=== PATIENT | female | born 1950 | race Caucasian/White ===

== ENCOUNTER 2018-08-13 13:33 | Inpatient (IN) | payer MEDICARE, OTHER ==
[~2018-08-13] VITALS: Ht 157.5 cm; Wt 49.9 kg
--- NOTE | 2018-08-13 13:36 | NUR ---
BIBRA FROM [facility] FOR GRADUAL ONSET CHEST PAIN, COUGH AND CONGESTION, NAD, VSS.
[2018-08-13] MEDS ORDERED: ACETAMINOPHEN ES 500 MG TABLET ONE (13:46)
[2018-08-13 13:55] LABS: BASOPHILS % (AUTO) 0.5 % (0.0-2.0); EOSINOPHILS % (AUTO) 0.1 % (0.0-6.0); HEMATOCRIT 29 % (33-45); HEMOGLOBIN 9.8 g/dL (11.5-14.8); LYMPHOCYTES # (AUTO) 0.8 /CMM (0.8-4.8); MEAN CORPUSCULAR HGB CONC 34 g/dl (31.0-36.0); MEAN CORPUSCULAR VOLUME 88 fL (82-100); MONOCYTES # (AUTO) 0.3 /CMM (0.1-1.30); MONOCYTES % (AUTO) 6.1 % (2.0-12.0); NEUTROPHILS # (AUTO) 4.4 /CMM (1.8-8.9); NEUTROPHILS % (AUTO) 78.3 % (43.0-81.0); PLATELET COUNT (AUTO) 237 /CMM (150-450); RED BLOOD CELL COUNT(AUTO) 3.29 MIL/uL (4.0-5.2); WHITE BLOOD COUNT (AUTO) 5.6 K/uL (4.3-11.0)
[2018-08-13] MEDS ORDERED: IV NS 0.9% 500 ML BAG IV ONE (14:00)
[2018-08-13] MEDS ORDERED: ACETAMINOPHEN 650 MG/SUPP.RECT RC ONE ×2 (14:00→14:08)
[2018-08-13] MEDS ORDERED: ACETAMINOPHEN ES 500 MG TABLET PO ONE (14:00)
[2018-08-13 14:02] LABS: CALCIUM, SERUM 8.6 mg/dL (8.5-10.1); CARBON DIOXIDE 26 mmol/L (21-32); CHLORIDE 99 mmol/L (98-107); GLUCOSE 122 mg/dL (74-106); POTASSIUM 3.7 mmol/L (3.5-5.1); SODIUM SERUM 133 mmol/L (136-145); UREA NITROGEN, BLOOD 22 mg/dL (7-18)
[2018-08-13 14:08] LABS: ALANINE AMINOTRANSFERASE 20 U/L (12-78); ALBUMIN 2.8 g/dL (3.4-5.0); ALKALINE PHOSPHATASE 92 U/L (46-116); ASPARTATE AMINOTRANSFERASE 16 U/L (15-37); BILIRUBIN,DIRECT 0.1 mg/dL (0.0-0.2); BILIRUBIN,TOTAL 0.2 mg/dL (0.2-1.0); TOTAL PROTEIN, SERUM 7.7 g/dL (6.4-8.2)
--- NOTE | 2018-08-13 14:15 | NUR ---
PATIENT REFUSED TYLENOL PO, REQUESTED FOR TYLENOL SUPP. MADE AWARE. WASTED ONE TAB OF TYLENOL 500MG BECAUSE ITS OPEN. RETURNED THE OTHER 500MG.
[2018-08-13] MEDS ORDERED: IV NS 0.9% 250 ML IV ONE (14:22)
[2018-08-13] MEDS ORDERED: IOHEXOL-300 100 ML VIAL IV ONE (14:22)
[2018-08-13] MEDS ORDERED: CT SWABBABLE VALVE TRANS SET 1 EA INFUS.SET MC ONE (14:22)
[2018-08-13] MEDS ORDERED: PIPERACILLIN /TAZOBACTAM 3.375 G in IV D5W 50 ML IV ONE (15:00)
--- NOTE | 2018-08-13 15:20 | NUR ---
PER DR. HOFFMAN, HE ORDERED 1.9ML OF IVF OF NS BUT PER MD, SUBTRACT THE 500ML OF NS THAT WAS ALREADY ADMINISTERED.
[2018-08-13 15:25] LABS: APPEARANCE,URINE Clear (CLEAR); BILIRUBIN,URINE Negative (NEGATIVE); BLOOD, URINE Negative Ery/uL (NEGATIVE); COLOR,URINE Yellow (YELLOW); KETONES,URINE Negative (NEGATIVE); LEUKOCYTE ESTERASE ,URINE Negative (NEGATIVE); NITRITE, URINE Negative (NEGATIVE); PH,URINE 7.5 (5.0-8.0); PROTEIN,URINE Negative (NEGATIVE); UGLUCOSE Negative (NEGATIVE); UROBILINOGEN,URINE 0.2 EU/dL (0.2)
[2018-08-13] MEDS ORDERED: IV NS 0.9% 1,000 ML BAG IV ONE (15:30)
[2018-08-13] MEDS ORDERED: VANCOMYCIN 1 GM in IV D5W 250 ML IV ONE (15:30)
--- NOTE | 2018-08-13 15:35 | NUR ---
CALLED NURSING SUP REQUESTED MEDSURG BED FOR THIS PATIENT
--- NOTE | 2018-08-13 15:43 | NUR ---
ADMIT TO ROOM 324-1 MEDSURG DX ABDOMINAL PAIN, R/O APPENDICITIS ACCEPTING TERI PHILIP NP
[2018-08-13] MEDS ORDERED: IV D5/0.45 NACL 1,000 ML IV PRN (16:03)
[2018-08-13] MEDS ORDERED: MAG HYDROX/AL HYDROX/SIMETH 30 ML UDC PO PRN (16:30)
[2018-08-13] MEDS ORDERED: Z GUARD REMEDY 2 OZ OINT TP PRN (16:30)
[2018-08-13] MEDS ORDERED: ZOLPIDEM TARTRATE 5 MG TABLET PO PRN (16:30)
[2018-08-13] MEDS ORDERED: ACETAMINOPHEN 650 MG/SUPP.RECT RC PRN (16:30)
[2018-08-13] MEDS ORDERED: ACETAMINOPHEN 325 MG TABLET PO PRN (16:30)
[2018-08-13] MEDS ORDERED: FEE PK DOSING 1 MIN EA MC ONE (16:42)
--- NOTE | 2018-08-13 16:52 | NUR ---
REPORT GIVEN TO WILLIE ARMENDARIZ. PATIENT ASLEEP AT THIS TIME.
[2018-08-13] MEDS ORDERED: ONDA4TAB5 PO (17:05)
[2018-08-13] MEDS ORDERED: CLID1CAP PO (17:05)
[2018-08-13] MEDS ORDERED: AMIN30LI27 PO (17:05)
[2018-08-13] MEDS ORDERED: HYDR-4354 PO (17:05)
[2018-08-13] MEDS ORDERED: ASCO-340 PO (17:05)
[2018-08-13] MEDS ORDERED: ACET325T53 PO (17:05)
[2018-08-13] MEDS ORDERED: MAGN400O6 PO (17:05)
[2018-08-13] MEDS ORDERED: ALPR1TAB2 PO (17:05)
[2018-08-13] MEDS ORDERED: NA P133E RC (17:05)
[2018-08-13] MEDS ORDERED: LIDO30AD10 TP (17:05)
[2018-08-13] MEDS ORDERED: GABA250S PO (17:05)
[2018-08-13] MEDS ORDERED: DOCU-141 PO (17:05)
[2018-08-13] MEDS ORDERED: ERGO500040 PO (17:05)
[2018-08-13] MEDS ORDERED: ACET-73 PO ×2 (17:05)
[2018-08-13] MEDS ORDERED: BLOO-668 IN (17:05)
[2018-08-13] MEDS ORDERED: TRAZ-182 PO (17:05)
[2018-08-13] MEDS ORDERED: BISA10SU61 RC (17:05)
[2018-08-13] MEDS ORDERED: FERR325T23 PO (17:05)
--- NOTE | 2018-08-13 17:15 | NUR ---
RECEIVED REPORT FROM CANDACE, PATIENT BEING ADMITTED TO [facility]. WILL ACCEPT PATIENT AND CARRY OUT ADMISSION ORDERS.
--- NOTE | 2018-08-13 17:30 | NUR ---
PATIENT TRANSFERRED TO ROOM 324, VIA GURNEY. IN STABLE CONDITION.
[2018-08-13] MEDS ORDERED: BISACODYL SUPP (10 MG) 10 MG/SUPP.RECT SUPP.RECT RC PRN (18:00)
[2018-08-13] MEDS: ONDANSETRON HCL/PF 4 MG/2 ML VIAL IVP PRN (18:08)
[2018-08-13] MEDS: HYDROCODONE/APAP 5/325MG 1 EACH TABLET PO PRN (18:08)
[2018-08-13] MEDS ORDERED: FEE TPN 1 MIN EA MC ONE (18:12)
[2018-08-13 18:26] LABS: MAGNESIUM 1.7 mg/dL (1.8-2.4); PHOSPHORUS 2.4 mg/dL (2.5-4.9)
[2018-08-13] MEDS ORDERED: DEXTROSE 50%-WATER 50 ML DISP.SYRIN IV PRN (18:30)
[2018-08-13] MEDS ORDERED: IV NS 0.9% 1,000 ML IV PRN (18:30)
[2018-08-13] MEDS ORDERED: INSULIN REGULAR, HUMAN 100 UNIT/ML 3 ML VIAL SQ PRN (18:30)
[2018-08-13] MEDS ORDERED: TPN/PPN PER PHARMACY XX PRN (18:30)
--- NOTE | 2018-08-13 18:30 | NUR ---
MS RN NOTE RECEIVED PATIENT VIA MibioRNEY IN STABLE CONDITION, ALERT ORIENTED X4. ON ROOM AIR, TOLERATING WELL. RESPIRATIONS EVEN AND UNLABORED. REPORTS PAIN IN RIGHT LOWER ABDOMEN 01/28. ADMITTING DR NOTIFIED. AWAITING ORDERS. PATIENT IS STABLE, FEBRILE 101.0 BODY TEMPERATURE. MD AWARE, NO NEW ORDERS AT THIS TIME. PATIENT REPORTEDLY RECEIVED TYLENOL IN THE ER. WILL CONTINUE TO MONITOR. SKIN ASSESSMENT PERFORMED, SKIN IS INTACT. PATIENT MADE COMFORTABLE IN BED. SAFETY MEASURES APPLIED. BED IN LOW LOCKED POSITION, SIDE RAILS UP X2, CALL LIGHT WITHIN EASY REACH. WILL CONTINUE TO MONITOR AND ENDORSE TO NIGHT RN FOR ANAHI AND ADMISSION. Addendum: 08/13/18 at 2044 by WILLIE BAIG RN LEFT UPPER ARM PICC LINE IN PLACE, PATENT AND INTACT.
--- NOTE | 2018-08-13 18:35 | NUR ---
PATIENT COMPLAINING OF PAIN IN RIGHT LOWER ABDOMEN. NORCO-5/325MG PRN ADMINISTERED WITH SMALL SIP OF WATER. ZOFRAN ADMINISTERED IV PATIENT WAS COMPLAINING OF NAUSEA. PATIENT TOLERATED WELL. VITAL SIGNS STABLE BP: 120/62 HR: 95, RESP 18. WILL CONTINUE TO MONITOR.
--- NOTE | 2018-08-13 19:00 | NUR ---
MS RN CLOSING NOTE PATIENT IN BED. ALERT ORIENTED X4. ON ROOM AIR, TOLERATING WELL. IN NO APPARENT DISTRESS OR DISCOMFORT AT THIS TIME. RESPIRATIONS EVEN AND UNLABORED. REPORTS PAIN HAS IMPROVED WITH THE PAIN MEDICATION. BODY TEM RECHECKED PRIOR TO ENDORSEMENT, 100.5. HOSPITALIST AWARE. ABLE TO COMMUNICATE NEEDS. LEFT UPPER ARM PICC LINE. PATENT AND INTACT. PATIENT MADE COMFORTABLE IN BED. SAFETY MEASURES IN PLACE, BED IN LOW LOCKED POSITION, SIDE RAILS UP X2, CALL LIGHT WITHIN EASY REACH. WILL ENDORSE TO PM NURSE FOR ADMISSION AND CONTINUITY OF CARE.
--- NOTE | 2018-08-13 19:30 | NUR ---
TELE/RN NOTES RECEIVED PT. LYING IN BED. PT. IS AWAKE, ALERT AND ORIENTED X4. BREATHING EVEN AND UNLABORED ON ROOM AIR. NO SOB, RESPIRATORY DISTRESS OR COMPLAINTS OF PAIN NOTED AT THIS TIME. NO N/V NOTED AT THIS TIME. PT. WITH EXTERNAL WELL DRILLER PRESENT AND INTACT. CURRENT RHYTHM = SINUS RHYTHM HR 93. PT. WITH LEFT UPPER ARM PICC PRESENT, PATENT AND INTACT. PT. REMAINS NPO AT THIS TIME. PER DAYSHIFT NURSE PT. HAD TEMPERATURE OF 103F IN ER AND PT. TEMPERATURE IS DOWN TRENDING. PER DAYSHIFT NURSE AWARE. BED LOCKED AND IN LOWEST POSITION, SIDE RAILS UP X2, CALL LIGHT WITHIN REACH, WILL CONTINUE TO MONITOR.
[2018-08-13 20:00] VITALS: BP 112/58
[2018-08-13] MEDS ORDERED: TPN BAG # 1 IV PRN ×8 (20:00)
--- NOTE | 2018-08-13 21:15 | NUR ---
MS/RN NOTES CALLED PHARMACY TO CLARIFY PT. HAS SCHEDULED IV ANTIBIOTICS ZOSYN AND VANCOMYCIN, IS IT COMPATIBLE TO ADMINISTER THESE ANTIBIOTICS WHILE PT. IS RECEIVING TPN. PER PHARMACIST RUBENS PT. HAS DOUBLE LUMEN PICC LINE, OK TO ADMINISTER ANTIBIOTICS AND TPN IF RUNNING THROUGH DIFFERENT LINES. WILL ADMINISTER TO PT. MEDICATION ORDERED. WILL CONTINUE TO MONITOR.
[2018-08-13] MEDS: PIPERACILLIN /TAZOBACTAM 3.375 G in IV D5W 50 ML IV SCH (21:29)
[2018-08-13] MEDS: TRAZODONE 50 MG TABLET PO SCH (22:00)
[2018-08-13] MEDS: ALPRAZOLAM 1 MG TABLET PO SCH (22:00)
[2018-08-13] MEDS: DOCUSATE SODIUM 100 MG CAPSULE PO SCH (22:00)
[2018-08-13] MEDS ORDERED: GABAPENTIN 50 MG PO SCH (22:00)
--- NOTE | 2018-08-13 23:02 | NUR ---
MS/RN NOTES NOTIFIED EPIC SPEECH CORRECTION CONSULTANT ASIA PARK PT. IS REQUESTING HER XANAX AND NORCO PAIN MEDICATION AND IS ADAMANT ABOUT TAKING THEM ROBBIN, PT. IS CURRENTLY NPO. CLARIFIED PT. NPO STATUS. PER ASIA PARK PT. NEEDS TO REMAIN NPO AT THIS TIME. NO MEDICATIONS TO BE GIVEN PO. PER ASIA PARK NEW ORDER: ATIVAN 1MG IVP EVERY 6 HOURS PRN ANXIETY. WILL CARRY OUT ORDER. WILL CONTINUE TO MONITOR.
[2018-08-14] MEDS: BLOOD SUGAR DIAGNOSTIC 1 EACH STRIP IN SCH ×4 (00:22→18:00)
[2018-08-14] MEDS: ONDANSETRON HCL/PF 4 MG/2 ML VIAL IVP PRN ×3 (00:31→14:12)
[2018-08-14] MEDS: HYDROMORPHONE INJ 2 MG/ML DISP.SYRIN IV PRN ×4 (00:31→20:26)
[2018-08-14] MEDS: LORAZEPAM INJ 2 MG/ML VIAL IV PRN ×2 (01:35→08:15)
[2018-08-14] MEDS: PIPERACILLIN /TAZOBACTAM 3.375 G in IV D5W 50 ML IV SCH ×4 (03:33→21:46)
[2018-08-14] MEDS: VANCOMYCIN 0.75 GM in IV D5W 250 ML IV SCH ×2 (04:15→16:38)
--- NOTE | 2018-08-14 05:21 | NUR ---
MS/RN NOTES NOTIFIED EPIC PRINCIPAL PRODUCT MANAGER ASIA PARK PT. PRELIMINARY BLOOD CULTURES RESULTED WITH GRAM POSITIVE COCCI, PT. IS CURRENTLY RECEIVING ZOSYN AND VANCOMYCIN ANTIBIOTICS. PER ASIA PARK OK NO NEW ORDERS. WILL CONTINUE TO MONITOR.
--- NOTE | 2018-08-14 06:09 | NUR ---
TELE/RN NOTES PT. IS LYING IN BED RESTING. BREATHING EVEN AND UNLABORED ON ROOM AIR. NO SOB, RESPIRATORY DISTRESS OR COMPLAINTS OF PAIN NOTED AT THIS TIME. NO N/V NOTED AT THIS TIME. PT. WITH LEFT UPPER ARM PICC PRESENT, PATENT AND INTACT ADMINISTERING TO PT. TPN BAG #1 @ 50ML/HR. PT. REMAINS NPO AT THIS TIME. PT. CONTINUES TO REFUSE FULL BODY CHECK AND PICTURES. ALL PT. NEEDS MET. BED LOCKED AND IN LOWEST POSITION, SIDE RAILS UP X2, CALL LIGHT WITHIN REACH, WILL ENDORSE TO DAYSRIFT NURSE FOR CONTINUITY OF CARE.
[2018-08-14 07:00] VITALS: BP 120/66
[2018-08-14 07:29] LABS: BASOPHILS % (AUTO) 0.1 % (0.0-2.0); HEMATOCRIT 25 % (33-45); HEMOGLOBIN 8.1 g/dL (11.5-14.8); LYMPHOCYTES # (AUTO) 0.7 /CMM (0.8-4.8); LYMPHOCYTES % (AUTO) 14.3 % (20.0-44.0); MEAN CORPUSCULAR HGB CONC 33 g/dl (31.0-36.0); MEAN CORPUSCULAR VOLUME 89 fL (82-100); MONOCYTES # (AUTO) 0.3 /CMM (0.1-1.30); MONOCYTES % (AUTO) 7.1 % (2.0-12.0); NEUTROPHILS # (AUTO) 3.7 /CMM (1.8-8.9); NEUTROPHILS % (AUTO) 78.5 % (43.0-81.0); PLATELET COUNT (AUTO) 200 /CMM (150-450); RED BLOOD CELL COUNT(AUTO) 2.77 MIL/uL (4.0-5.2); WHITE BLOOD COUNT (AUTO) 4.7 K/uL (4.3-11.0)
--- NOTE | 2018-08-14 07:30 | NUR ---
MS RN OPENING NOTES RECEIVED PATIENT IN STABLE CONDITION. IN NO APPARENT DISTRESS. BEDSIDE RAILS ARE UPX2. BED IS LOCKED AND LOWERED. CALL LIGHT IS WITHIN REACH. IV LINE IS INTACT AND PATENT. WILL CONTINUE TO MONITOR PATIENT.
[2018-08-14] MEDS: PANTOPRAZOLE 40 MG VIAL IV SCH (08:11)
[2018-08-14] MEDS: FERROUS SULFATE (325 MG) 325 MG/TAB TABLET PO SCH (08:13)
[2018-08-14] MEDS: CLIDINIUM BR/CHLORDIAZEPOXIDE 1 CAP PO SCH ×2 (08:13→16:37)
[2018-08-14] MEDS: ASCORBIC ACID 500 MG TABLET PO SCH (08:13)
[2018-08-14] MEDS: LIDOCAINE 5% (PATCH) 1 EA PATCH TP SCH (08:38)
[2018-08-14] MEDS ORDERED: Medication Not On Formulary EA (Amino Acids/Protein Hydrolys (Pro-Stat Sugar Free Liquid PO SCH (09:00)
[2018-08-14 09:11] LABS: ALBUMIN 2.3 g/dL (3.4-5.0); BILIRUBIN,TOTAL 0.3 mg/dL (0.2-1.0); CALCIUM, SERUM 8.1 mg/dL (8.5-10.1); MAGNESIUM 1.5 mg/dL (1.8-2.4); PHOSPHORUS 3.4 mg/dL (2.5-4.9); TOTAL PROTEIN, SERUM 6.6 g/dL (6.4-8.2)
[2018-08-14 16:00] VITALS: BP 129/68
[2018-08-14] MEDS ORDERED: TPN BAG#2 IV PRN ×8 (17:00)
--- NOTE | 2018-08-14 18:39 | NUR ---
MS RN CLOSING NOTES PATIENT IS IN STABLE CONDITION. IN NO APPARENT DISTRESS. BEDSIDE RAILS ARE UPX2. BED IS LOCKED AND LOWERED. CALL LIGHT IS WITHIN REACH. IV LINE IS INTACT AND PATENT. ALL NEEDS WERE MET. WILL ENDORSE CARE TO IMPREGNATING TANK OPERATOR NURSE FOR ANAHI.
--- NOTE | 2018-08-14 19:10 | NUR ---
MS/RN NOTES RECEIVED PT. LYING IN BED. PT. IS AWAKE, ALERT AND ORIENTED X4. BREATHING EVEN AND UNLABORED ON ROOM AIR. NO SOB, RESPIRATORY DISTRESS OR COMPLAINTS OF PAIN NOTED AT THIS TIME. NO N/V NOTED AT THIS TIME. PT. WITH LEFT UPPER ARM PICC PRESENT, PATENT AND INTACT ADMINISTERING TO PT. TPN BAG #1 AT 50ML/HR. PT. REMAINS NPO AT THIS TIME. PER DAYSHIFT NURSE AWAITING ARRIVAL OF PICC LINE NURSE TO INSERT NEW PICC SO THAT OLD PICC CAN BE REMOVED AND TIP SENT FOR CULTURE. BED LOCKED AND IN LOWEST POSITION, SIDE RAILS UP X2, CALL LIGHT WITHIN REACH, WILL CONTINUE TO MONITOR.
[2018-08-14 20:00] VITALS: BP 140/74
[2018-08-14] MEDS: GABAPENTIN 100 MG CAPSULE PO SCH (22:00)
[2018-08-14] MEDS: TRAZODONE 50 MG TABLET PO SCH (22:00)
[2018-08-14] MEDS: DOCUSATE SODIUM 100 MG CAPSULE PO SCH (22:00)
[2018-08-14] MEDS: ALPRAZOLAM 1 MG TABLET PO SCH (22:37)
--- NOTE | 2018-08-15 00:50 | NUR ---
MS/RN NOTES PICC LINE NURSE PRESENT AT BEDSIDE. CONSENT FOR PICC SIGNED BY PATIENT AND PLACED IN PT. CHART. WILL CONTINUE TO MONITOR.
[2018-08-15] MEDS: HYDROMORPHONE INJ 2 MG/ML DISP.SYRIN IV PRN ×4 (00:57→21:09)
--- NOTE | 2018-08-15 01:35 | NUR ---
MS/RN NOTES NEW PICC LINE ACCESS INSERTED INTO RIGHT BASILLIC AT 36 CM. PT. TOLERATED PROCEDURE WELL. NO COMPLAINTS OF PAIN NOTED AT THIS TIME. WILL CONTINUE TO MONITOR.
--- NOTE | 2018-08-15 01:45 | NUR ---
MS/RN NOTES PT. LEFT UPPER ARM PICC LINE REMOVED. NO BLEEDING NOTED. PT. TOLERATED PROCEDURE WELL. PICC CATHETER TIP SENT TO LAB FOR CULTURE. WILL CONTINUE TO MONITOR.
[2018-08-15] MEDS: PIPERACILLIN /TAZOBACTAM 3.375 G in IV D5W 50 ML IV SCH ×4 (03:56→21:12)
[2018-08-15] MEDS: HYDROCODONE/APAP 5/325MG 1 EACH TABLET PO PRN ×2 (04:28→16:53)
[2018-08-15] MEDS: VANCOMYCIN 0.75 GM in IV D5W 250 ML IV SCH ×2 (05:23→17:09)
[2018-08-15] MEDS: BLOOD SUGAR DIAGNOSTIC 1 EACH STRIP IN SCH ×5 (06:00→23:55)
--- NOTE | 2018-08-15 06:39 | NUR ---
MS/RN NOTES PT. IS LYING IN BED RESTING BREATHING EVEN AND UNLABORED ON ROOM AIR. NO SOB, RESPIRATORY DISTRESS OR COMPLAINTS OF PAIN NOTED AT THIS TIME. NO N/V NOTED AT THIS TIME. PT. WITH RIGHT UPPER ARM PICC PRESENT, PATENT AND INTACT ADMINISTERING TO PT. TPN BAG #2 AT 65ML/HR. ALL PT. NEEDS MET. BED LOCKED AND IN LOWEST POSITION, SIDE RAILS UP X2, CALL LIGHT WITHIN REACH, WILL ENDORSE TO DAYSHIFT NURSE FOR CONTINUITY OF CARE.
--- NOTE | 2018-08-15 07:32 | NUR ---
MS RN OPENING NOTES RECEIVED PATIENT IN STABLE CONDITION. IN NO APPARENT DISTRESS. BEDSIDE RAILS ARE UPX2. BED IS LOCKED AND LOWERED. CALL LIGHT IS WITHIN REACH. IV LINE IS INTACT AND PATENT. WILL CONTINUE TO MONITOR PATIENT. PATIENT IS RESTING COMFORTABLY IN BED.
[2018-08-15 08:00] VITALS: BP 119/65
[2018-08-15] MEDS ORDERED: TPN BAG#3 IV PRN ×5 (08:00)
[2018-08-15 08:58] LABS: BASOPHILS % (AUTO) 0.6 % (0.0-2.0); EOSINOPHILS % (AUTO) 0.5 % (0.0-6.0); HEMATOCRIT 26 % (33-45); HEMOGLOBIN 8.7 g/dL (11.5-14.8); LYMPHOCYTES % (AUTO) 20.6 % (20.0-44.0); MEAN CORPUSCULAR HGB CONC 34 g/dl (31.0-36.0); MEAN CORPUSCULAR VOLUME 86 fL (82-100); MONOCYTES # (AUTO) 0.6 /CMM (0.1-1.30); MONOCYTES % (AUTO) 13.4 % (2.0-12.0); NEUTROPHILS % (AUTO) 64.9 % (43.0-81.0); PLATELET COUNT (AUTO) 211 /CMM (150-450); RED BLOOD CELL COUNT(AUTO) 3.04 MIL/uL (4.0-5.2); WHITE BLOOD COUNT (AUTO) 4.6 K/uL (4.3-11.0)
[2018-08-15] MEDS: FERROUS SULFATE (325 MG) 325 MG/TAB TABLET PO SCH (09:00)
[2018-08-15] MEDS: LIDOCAINE 5% (PATCH) 1 EA PATCH TP SCH (09:00)
[2018-08-15] MEDS: ASCORBIC ACID 500 MG TABLET PO SCH (09:00)
[2018-08-15] MEDS: CLIDINIUM BR/CHLORDIAZEPOXIDE 1 CAP PO SCH ×2 (09:00→17:00)
[2018-08-15] MEDS: PANTOPRAZOLE 40 MG VIAL IV SCH (09:09)
[2018-08-15 09:10] LABS: ALBUMIN 2.3 g/dL (3.4-5.0); BILIRUBIN,TOTAL 0.3 mg/dL (0.2-1.0); CALCIUM, SERUM 8.3 mg/dL (8.5-10.1); POTASSIUM 3.5 mmol/L (3.5-5.1); TOTAL PROTEIN, SERUM 6.7 g/dL (6.4-8.2)
[2018-08-15 10:14] LABS: MAGNESIUM 1.9 mg/dL (1.8-2.4)
[2018-08-15] MEDS ORDERED: TPN BAG #4 IV PRN ×7 (11:30)
[2018-08-15 15:59] VITALS: BP 128/79
[2018-08-15] MEDS: MAGNESIUM HYDROXIDE 30 ML UDC PO PRN (16:53)
--- NOTE | 2018-08-15 19:05 | NUR ---
MILK POWDER GRINDER CLOSING NOTES PATIENT IS IN STABLE CONDITION. IN NO APPARENT DISTRESS. BEDSIDE RAILS ARE UPX2. BED IS LOCKED AND LOWERED. CALL LIGHT IS WITHIN REACH. IV LINE IS INTACT AND PATENT. WILL ENDORSE CARE TO POCKET AND PULLEY MACHINE OPERATOR NURSE FOR ANAHI./
--- NOTE | 2018-08-15 19:40 | NUR ---
MS RN NOTE: PATIENT RESTING IN BED, NO ACUTE DISTRESS NOTED. BREATHING EVEN AND UNLABORED, NO SOB NOTED. PICC LINE TO DINORAH IN PLACE, INFUSING TPN AT 65ML/HR PER MD ORDER. NO S/S OF HYPER/HYPOGLYCEMIA NOTED. BED LOCKED AND IN LOWEST POSITION, CALL LIGHT IN REACH, WILL CONTINUE TO MONITOR.
[2018-08-15 20:00] VITALS: BP 128/71
[2018-08-15] MEDS: ALPRAZOLAM 1 MG TABLET PO SCH (21:12)
[2018-08-15] MEDS: DOCUSATE SODIUM 100 MG CAPSULE PO SCH (21:13)
[2018-08-15] MEDS: TRAZODONE 50 MG TABLET PO SCH (21:13)
[2018-08-15] MEDS: GABAPENTIN 100 MG CAPSULE PO SCH (21:13)
--- NOTE | 2018-08-15 21:15 | NUR ---
MS RN NOTE: PATIENT COMPLAINS OF PAIN TO RIGHT ARM 9/10, DILAUDID 1MG IV GIVEN PER MD ORDER. WILL CONTINUE TO MONITOR.
--- NOTE | 2018-08-15 23:50 | NUR ---
MS RN NOTE: PATIENT BLOOD SUGAR LEVEL 152MG/DL, PATIENT TO HAVE 2 UNITS OF INSULIN PER SLIDING SCALE, BUT PATIENT REFUSES INSULIN ORDERED. EXPLAINED RISKS AND BENEFITS OF INSULIN, BUT PATIENT CONTINUES TO REFUSE SINCE PATIENT IS NOT A DIABETIC, BUT BLOOD SUGAR ELEVATED DUE TO TPN. NO S/S OF HYPER/HYPOGLYCEMIA NOTED. WILL CONTINUE TO MONITOR.
[2018-08-16] MEDS: PIPERACILLIN /TAZOBACTAM 3.375 G in IV D5W 50 ML IV SCH ×4 (02:43→21:36)
[2018-08-16] MEDS: MAGNESIUM HYDROXIDE 30 ML UDC PO PRN (03:01)
[2018-08-16] MEDS: HYDROMORPHONE INJ 2 MG/ML DISP.SYRIN IV PRN ×4 (03:08→21:57)
[2018-08-16] MEDS: VANCOMYCIN 0.75 GM in IV D5W 250 ML IV SCH ×2 (03:59→16:51)
[2018-08-16] MEDS: BLOOD SUGAR DIAGNOSTIC 1 EACH STRIP IN SCH ×4 (06:00→23:23)
--- NOTE | 2018-08-16 06:20 | NUR ---
MS RN NOTE: PATIENT RESTING IN BED, NO ACUTE DISTRESS NOTED. BREATHING EVEN AND UNLABORED, NO SOB NOTED. PICC LINE TO DINORAH IN PLACE, INFUSING TPN AT 65ML/HR PER MD ORDER. PATIENT REFUSE BLOOD SUGAR CHECK, NO S/S OF HYPER/HYPOGLYCEMIA NOTED. BED LOCKED AND IN LOWEST POSITION, CALL LIGHT IN REACH, WILL ENDORSE TO DAY NURSE TO CONTINUE WITH PLAN OF CARE.
[2018-08-16 07:29] LABS: BASOPHILS % (AUTO) 0.4 % (0.0-2.0); EOSINOPHILS % (AUTO) 0.7 % (0.0-6.0); HEMATOCRIT 26 % (33-45); HEMOGLOBIN 9.2 g/dL (11.5-14.8); LYMPHOCYTES # (AUTO) 1.1 /CMM (0.8-4.8); LYMPHOCYTES % (AUTO) 28.1 % (20.0-44.0); MEAN CORPUSCULAR HGB CONC 35 g/dl (31.0-36.0); MEAN CORPUSCULAR VOLUME 87 fL (82-100); MONOCYTES # (AUTO) 0.5 /CMM (0.1-1.30); MONOCYTES % (AUTO) 13.7 % (2.0-12.0); NEUTROPHILS # (AUTO) 2.2 /CMM (1.8-8.9); NEUTROPHILS % (AUTO) 57.1 % (43.0-81.0); PLATELET COUNT (AUTO) 232 /CMM (150-450); RED BLOOD CELL COUNT(AUTO) 3.03 MIL/uL (4.0-5.2); WHITE BLOOD COUNT (AUTO) 3.9 K/uL (4.3-11.0)
[2018-08-16 07:45] LABS: CALCIUM, SERUM 8.6 mg/dL (8.5-10.1); MAGNESIUM 2.3 mg/dL (1.8-2.4); PHOSPHORUS 3.8 mg/dL (2.5-4.9); POTASSIUM 3.7 mmol/L (3.5-5.1)
[2018-08-16 08:00] VITALS: BP 130/74
[2018-08-16] MEDS ORDERED: TPN BAG #5 IV PRN ×5 (09:00)
[2018-08-16] MEDS: FERROUS SULFATE (325 MG) 325 MG/TAB TABLET PO SCH (09:00)
[2018-08-16] MEDS: CLIDINIUM BR/CHLORDIAZEPOXIDE 1 CAP PO SCH ×2 (09:00→17:00)
[2018-08-16] MEDS: ASCORBIC ACID 500 MG TABLET PO SCH (09:00)
[2018-08-16] MEDS: LIDOCAINE 5% (PATCH) 1 EA PATCH TP SCH (09:00)
[2018-08-16] MEDS: PANTOPRAZOLE 40 MG VIAL IV SCH (09:27)
[2018-08-16] MEDS: HYDROCODONE/APAP 5/325MG 1 EACH TABLET PO PRN (12:14)
--- NOTE | 2018-08-16 12:36 | NUR ---
BLOOD SUGAR CHECK WAS 138. PATIENT REFUSED TO RECEIVE INSULIN. PATIENT ON TPN AND ACCU CHECKS Q6HR.
--- NOTE | 2018-08-16 15:33 | NUR ---
PER PHARMACY. OK TO GIVE VANCOMYCIN. LAST VANCO THROUGH LEVEL: 15 ON 08/14/18 AT 1500. VANCO THROUGH WILL BE RECHECKED AGAIN TOMORROW.
[2018-08-16 15:56] VITALS: BP 121/70
--- NOTE | 2018-08-16 18:25 | NUR ---
MS RN CLOSING NOTES PATIENT IS IN STABLE CONDITION. IN NO APPARENT DISTRESS. BEDSIDE RAILS ARE UPX2. BED IS LOCKED AND LOWERED. CALL LIGHT IS WITHIN REACH. IV LINE IS INTACT AND PATENT. ALL NEEDS WERE MET. WILL ENDORSE CARE TO CROSS COUNTRY TRUCK DRIVER NURSE FOR ANAHI.
[2018-08-16] MEDS: ONDANSETRON HCL/PF 4 MG/2 ML VIAL IVP PRN (19:40)
--- NOTE | 2018-08-16 19:50 | NUR ---
MS RN NOTE: PATIENT RESTING IN BED, NO ACUTE DISTRESS NOTED. BREATHING EVEN AND UNLABORED, NO SOB NOTED. PICC LINE TO DINORAH IN PLACE, INFUSING TPN AT 65ML/HR PER MD ORDER. NO S/S OF HYPER/HYPOGLYCEMIA NOTED. PATIENT NAUSEOUS, ZOFRAN 4MG IV GIVEN PER MD ORDER. BED LOCKED AND IN LOWEST POSITION, CALL LIGHT IN REACH, WILL CONTINUE TO MONITOR.
[2018-08-16 20:00] VITALS: BP 155/80
[2018-08-16] MEDS: LORAZEPAM INJ 2 MG/ML VIAL IV PRN (20:26)
--- NOTE | 2018-08-16 20:45 | NUR ---
MS RN NOTE: RECEIVED CALL FROM LAB FOR PATIENT VANCO LEVEL OF 50. INFORMED THAT PATIENT ALREADY RECEIVED DOSE OF VANCO BEFORE THAT VANCO LEVEL WAS TAKEN. PATIENT TO HAVE ANOTHER VANCO LEVEL DRAWN. PATIENT ANXIOUS AND REQUESTING MEDICATIONS. ATIVAN 1MG IV GIVEN PER MD ORDER. WILL CONTINUE TO MONITOR.
[2018-08-16] MEDS: GABAPENTIN 100 MG CAPSULE PO SCH (21:36)
[2018-08-16] MEDS: TRAZODONE 50 MG TABLET PO SCH (21:36)
[2018-08-16] MEDS: DOCUSATE SODIUM 100 MG CAPSULE PO SCH (21:36)
[2018-08-16] MEDS: ALPRAZOLAM 1 MG TABLET PO SCH (21:57)
--- NOTE | 2018-08-16 23:00 | NUR ---
MS RN NOTE: PATIENT CONTINUES TO FEEL NAUSEOUS AND HAVE ABDOMINAL PAIN AND REFUSES TO TAKE ANY ORAL MEDICATIONS, EXPLAINED RISK AND BENEFITS, BUT CONTINUES TO REFUSE. PATIENT ALSO REFUSED BLOOD SUGAR CHECK. WILL CONTINUE TO MONITOR.
[2018-08-17] MEDS: PIPERACILLIN /TAZOBACTAM 3.375 G in IV D5W 50 ML IV SCH ×3 (02:56→14:27)
[2018-08-17] MEDS: HYDROMORPHONE INJ 2 MG/ML DISP.SYRIN IV PRN ×3 (03:10→15:02)
[2018-08-17] MEDS: LORAZEPAM INJ 2 MG/ML VIAL IV PRN (05:17)
[2018-08-17] MEDS: BLOOD SUGAR DIAGNOSTIC 1 EACH STRIP IN SCH ×2 (06:00→12:00)
--- NOTE | 2018-08-17 06:30 | NUR ---
MS RN NOTE: PATIENT RESTING IN BED, NO ACUTE DISTRESS NOTED. BREATHING EVEN AND UNLABORED, NO SOB NOTED. PICC LINE TO DINORAH IN PLACE, INFUSING BAG # 5 TPN AT 65ML/HR PER MD ORDER. PATIENT BLOOD SUGAR 249 MG/DL, PATIENT CONTINUE TO REFUSE INSULIN NEEDED PER SLIDING SCALE. EXPLAINED RISK AND BENEFITS, BUT CONTINUES TO REFUSE. NO S/S OF HYPER/HYPOGLYCEMIA NOTED. BED LOCKED AND IN LOWEST POSITION, CALL LIGHT IN REACH, WILL ENDORSE TO DAY NURSE TO CONTINUE WITH PLAN OF CARE.
[2018-08-17 06:32] LABS: BASOPHILS % (AUTO) 0.4 % (0.0-2.0); EOSINOPHILS % (AUTO) 0.5 % (0.0-6.0); HEMATOCRIT 25 % (33-45); HEMOGLOBIN 8.5 g/dL (11.5-14.8); LYMPHOCYTES # (AUTO) 1.3 /CMM (0.8-4.8); LYMPHOCYTES % (AUTO) 22.9 % (20.0-44.0); MEAN CORPUSCULAR HGB CONC 34 g/dl (31.0-36.0); MEAN CORPUSCULAR VOLUME 88 fL (82-100); MONOCYTES # (AUTO) 0.7 /CMM (0.1-1.30); MONOCYTES % (AUTO) 13.1 % (2.0-12.0); NEUTROPHILS # (AUTO) 3.5 /CMM (1.8-8.9); NEUTROPHILS % (AUTO) 63.1 % (43.0-81.0); PLATELET COUNT (AUTO) 253 /CMM (150-450); RED BLOOD CELL COUNT(AUTO) 2.81 MIL/uL (4.0-5.2); WHITE BLOOD COUNT (AUTO) 5.6 K/uL (4.3-11.0)
[2018-08-17 06:45] LABS: CALCIUM, SERUM 8.3 mg/dL (8.5-10.1); MAGNESIUM 1.8 mg/dL (1.8-2.4); PHOSPHORUS 3.2 mg/dL (2.5-4.9); POTASSIUM 3.6 mmol/L (3.5-5.1)
--- NOTE | 2018-08-17 07:30 | NUR ---
MS RN Opening Note Patient asleep, resting in bed. Alert and oriented x4, able to make needs known verbally. Respirations even and unlabored on room air, no shortness of breath or congestion noted. No complaints of pain or discomfort at this time. No nausea at this time. No signs or symptoms of hypo or hyperglycemia. PICC line to the right upper arm, intact, patent and infusing TPN at 65 mL/hr as ordered. Fall and Safety precautions in place: bed in lowest and locked position, side rails up x2, bed alarm on, call light and personal possessions within reach. Reviewed plan of care and safety measures with patient, verbalized understanding. Will continue to monitor and intervene as needed.
[2018-08-17 08:00] VITALS: BP 108/64
[2018-08-17] MEDS: PANTOPRAZOLE 40 MG VIAL IV SCH (08:44)
[2018-08-17] MEDS: LIDOCAINE 5% (PATCH) 1 EA PATCH TP SCH (08:45)
[2018-08-17] MEDS: CLIDINIUM BR/CHLORDIAZEPOXIDE 1 CAP PO SCH ×2 (08:45→17:00)
[2018-08-17] MEDS: ASCORBIC ACID 500 MG TABLET PO SCH (08:45)
[2018-08-17] MEDS: FERROUS SULFATE (325 MG) 325 MG/TAB TABLET PO SCH (08:45)
[2018-08-17] MEDS ORDERED: TPN BAG #6 IV PRN ×6 (09:00)
[2018-08-17] MEDS ORDERED: TPN BAG #7 IV PRN ×8 (09:00)
[2018-08-17] MEDS ORDERED: PIPE3.379 IV (11:27)
[2018-08-17] MEDS ORDERED: LOPERAMIDE HCL (2 MG CAP) 2 MG CAPSULE PO PRN (11:30)
[2018-08-17] MEDS: HYDROCODONE/APAP 5/325MG 1 EACH TABLET PO PRN (12:56)
[2018-08-17] MEDS: ONDANSETRON HCL/PF 4 MG/2 ML VIAL IVP PRN (15:23)
[2018-08-17 16:00] VITALS: BP 142/76
--- NOTE | 2018-08-17 17:00 | NUR ---
MS health safety coordinator Note Patient discharged from hospital, medically stable. Vital signs stable. Ambulates with steady gait. Alert and oriented x4, able to make needs known verbally. Respirations even and unlabored on room air, no shortness of breath or congestion noted. No complaints of pain or discomfort at this time. Right upper arm PICC line, intact, patent and saline locked. No redness or swelling of site noted. Refused blood glucose checks as ordered this shift. Patient transferred with TPN formulary as ordered, copies of formulary sent with EMS in discharge packet. Skin assessment completed, skin and sacrum area intact. Refused photos of area. Educated two times about importance yet still refused assessment and photos. Personal belongings accounted for, acknowledged and verified via signature on form. Copy in chart. Discharge instructions and Exitcare provided to patient, verbalized understanding and acknowledged/verified via signature on form. Copy in chart. ID band removed. Family notified of discharge. Patient safely transported off unit with EMS transport to [facility]; report called at 1500 to MARCELLO Bray for continuity of care. Transfer summary and medication list transferred with patient.
== END 2018-08-17 17:00 | DRG 314 ==
LOC: ER 13:33 → MED 15:55
PROVIDERS: ADMIT Nurse Practitioner Acute Care; ATTEND Nurse Practitioner Acute Care
PROC: 02HV33Z Insertion of Infusion Device into Superior Vena Cava, Percutaneous Approach (ICD-10-PCS; principal; 2018-08-15)
PROC: B548ZZA Ultrasonography of Superior Vena Cava, Guidance (ICD-10-PCS; 2018-08-15)
DX: T80.211A Bloodstream infection due to central venous catheter, initial encounter (principal); A41.9 Sepsis, unspecified organism; E87.1 Hypo-osmolality and hyponatremia; E44.0 Moderate protein-calorie malnutrition; K63.2 Fistula of intestine; Y84.8 Other medical procedures as the cause of abnormal reaction of the patient, or of later complication, without mention of misadventure at the time of the procedure; F41.9 Anxiety disorder, unspecified; E86.0 Dehydration; D63.8 Anemia in other chronic diseases classified elsewhere; E78.5 Hyperlipidemia, unspecified; G89.4 Chronic pain syndrome; F32.9 Major depressive disorder, single episode, unspecified; R33.9 Retention of urine, unspecified; E88.09 Other disorders of plasma-protein metabolism, not elsewhere classified; Z68.20 Body mass index [BMI] 20.0-20.9, adult; K59.03 Drug induced constipation; T40.2X5A Adverse effect of other opioids, initial encounter; Y92.129 Unspecified place in nursing home as the place of occurrence of the external cause; M06.9 Rheumatoid arthritis, unspecified; E11.649 Type 2 diabetes mellitus with hypoglycemia without coma; E11.40 Type 2 diabetes mellitus with diabetic neuropathy, unspecified
CPT/HCPCS: 36415; 36569; 71045-TC; 80048-TC; 80053-TC; 80061-TC; 80076-TC; 80202-TC; 81000-TC; 82962-TC; 83605-TC; 83735-TC; 84100-TC; 84134-TC; 84484-TC; 85025-TC; 85730-TC; 87040-TC; 87070-TC; 87081-TC; 87086-TC; 87186-TC; 87400; A4216; C1751; C9113; G0378; J1170; J1815; J2060; J2405; J2543; J3370; J3475; J3480; J3490; J7030; J7040; J7050; J7060; Q9967